=== PATIENT | female | born 1945 | race Caucasian/White ===

== ENCOUNTER 2019-04-11 07:55 | Outpatient (CLI) | payer MEDICARE ==
--- NOTE | 2019-04-11 12:05 | MRI ---
EXAM: MRI of the abdomen without and with contrast COMPARISON: None HISTORY: Cystadenoma of the pancreas TECHNIQUE: Multiplanar multi sequence MR images were taken of the abdomen without and with IV contras t. [An MRCP was performed.] FINDINGS: Liver: No focal liver lesions or intrahepatic ductal dilatation. Normal signal without dropout on out of phase images. No abnormal enhancement. Gallbladder: Removed Common bile duct: Normal caliber without filling defects Adrenal glands: Unremarkable. Kidneys: Small nonenhancing foci of high T2 signal measuring up to 8 mm in size likely represent cyst s. No abnormal areas of enhancement. Spleen: Unremarkable. Pancreas: There is a 6.7 cm multilobulated cystic lesion in the head of the pancreas. There is mild e nlargement of the pancreatic duct. Additional cysts are seen scattered throughout the pancreas and a second multilobulated cystic lesion is seen in the tail of pancreas measuring 3.4 cm in size. No ab normal enhancement. Retroperitoneum: No enlarged lymph nodes Bones: No marrow signal abnormality. IMPRESSION: 1. Multiple pancreatic multiloculated cystic lesions. These may represent pancreatic cysts or multipl e serous cystadenomas. 2. Renal cysts
== END 2019-04-11 07:56 | disposition home or self-care (01) ==
LOC: SCSMRI 07:55
PROVIDERS: ATTEND Internal Medicine Gastroenterology
DX: D13.6 Benign neoplasm of pancreas (principal); N28.1 Cyst of kidney, acquired; K86.2 Cyst of pancreas
CPT/HCPCS: 74183; 82565